=== PATIENT | female | born 1960 | race Caucasian/White ===

== ENCOUNTER → 2019-08-29 16:57 | Outpatient (CLI) | payer OTHER, BC, SELFPAY ==
--- NOTE | ~2019-08-29 | XR_ITS ---
EXAMINATION: XR chest 2V DATE: 08/29/2019 17:11 INDICATION: Cough. TECHNIQUE: Frontal and lateral views of the chest were obtained. COMPARISON: CT abdomen and pelvis 01/11/2019 FINDINGS: There is mild scarring at the lung apices. No pleural effusion or pneumothorax. Blunting of the posterior costophrenic angles correlates with small diaphragmatic hernias containing fat by CT. The heart size is normal. Breast implants are noted. IMPRESSION: 1. Mild scarring at the lung apices. Reviewed, dictated and finalized at location A.
== END ==
PROVIDERS: PCP Nurse Practitioner Adult Health; Visit Provider Nurse Practitioner Adult Health
DX: R05 Cough (principal); R91.8 Other nonspecific abnormal finding of lung field
CPT/HCPCS: 71046

== ENCOUNTER → 2020-01-05 14:21 | Outpatient (CLI) | payer OTHER, BC, SELFPAY ==
--- NOTE | ~2020-01-05 | XR_ITS ---
XR chest 2V DATE: 01/05/2020 14:36 INDICATION: Cough TECHNIQUE: PA and lateral views COMPARISON: 08/29/2019 2 view chest FINDINGS: Normal heart size. No hilar or mediastinal enlargement. Bilateral hyperinflation. Mild in filtrate or atelectasis at the lung bases; otherwise no pulmonary infiltrate or consolidation, pulmon anne marie vascular congestion, pleural effusion or pneumothorax. Osteopenia. There is levoscoliosis of the upper thoracic spine. IMPRESSION: Bilateral hyperinflation. Mild infiltrate or atelectasis at the lung bases; otherwise no active cardiopulmonary disease. No sig nificant change since 08/29/2019 Reviewed, dictated and finalized at location B. IMPRESSION: Bilateral hyperinflation. Mild infiltrate or atelectasis at the lung bases; otherwise no active cardiopul monary disease. No significant change since 08/29/2019
== END ==
PROVIDERS: Visit Provider Nurse Practitioner Adult Health
DX: R05 Cough (principal); R91.8 Other nonspecific abnormal finding of lung field
CPT/HCPCS: 71046

== ENCOUNTER 2020-08-27 15:12 | Emergency (ER) | payer OTHER, BC, SELFPAY ==
--- NOTE | ~2020-08-27 | CT_ITS ---
EXAMINATION: CT abdomen pelvis w con EXAM DATE: 08/27/2020 16:33 INDICATION: Left lower quadrant pain radiating into groin. TECHNIQUE: Spiral CT of the abdomen and pelvis was performed following intravenous injection of 100 m L Omnipaque 350. Axial, coronal and sagittal images were reviewed. The dose-length product (DLP) fo r this examination was 318.68 mGy-cm. The exposure was tailored according to patient size (auto mA e xposure control), and iterative reconstruction (ASIR) was used as additional dose reduction technique . Comparison is made to prior examination from 01/10/2019. FINDINGS: The liver, spleen, adrenal glands and pancreas are unremarkable. Gallbladder is unremarkab le. No biliary obstruction. Portal and splenic veins are patent. Kidneys enhance symmetrically. T here is no hydronephrosis. The uterus is not identified and has likely been surgically resected. T he bladder is unremarkable. There is no retroperitoneal or pelvic lymphadenopathy. Small umbilical fat-containing hernia. The appendix is not positively visualized. There is no pericecal inflammatory change to suggest appe ndicitis. The stomach and small bowel are unremarkable. There is colonic fluid, correlate for diar kasie. There is mild sigmoid colonic diverticulosis. There is no adjacent inflammatory change to sugg est diverticulitis. No free intraperitoneal gas. The heart is normal in size. There are no perica rdial or pleural effusions. Right middle lobe granuloma. Bibasilar linear atelectasis. There are no osteoblastic or osteolytic lesions identified. Compared to prior study, the perisigmoid inflammatio n has resolved. IMPRESSION: 1. No acute intra-abdominal findings. 2. Colonic fluid without wall thickening. Reviewed, dictated and finalized at location A.
[2020-08-27 15:16] VITALS: BP 140/78; PULSE 83; RESP 20; TEMP 36.6; O2SAT 99
[2020-08-27 15:30] VITALS: BP 140/78; PULSE 83; RESP 16; TEMP 36.6; O2SAT 99
--- NOTE | 2020-08-27 15:47 | ED.GENADULT ---
HPI - General Adult General Chief complaint: Abdominal Pain Stated complaint: llq abdominal pain Time Seen by Provider: 08/27/20 15:23 Source: RN notes reviewed History of Present Illness HPI narrative: Patient presents emergency department from home for abdominal pain. Patient states pain began approximately 1 week ago pain is located in the left lower quadrant and radiates down into the rectum described as sharp and stabbing. Patient called her PCP last week and was started on Cipro and Flagyl which she has been taking with minimal relief she denies any fevers or chills chest pain shortness of breath nausea vomiting diarrhea or any other symptoms. States she does have a history of diverticulitis Related Data Allergies Allergy/AdvReac Type Severity Reaction Status Date / Time azithromycin Allergy Mild MUSCLE Verified 08/27/20 15:54 CRAMPS levofloxacin Allergy Unknown MUSCLE Verified 08/27/20 15:54 CRAMPS Review of Systems Review of Systems: Narrative: Gen.: Denies fevers or chills ENT: Denies congestion Respiratory: Denies shortness of breath or cough CV: Denies chest pain or palpitations GI: See HPI denies burning, urgency, frequency or hematuria Musculoskeletal: Denies back pain or muscle pain Neuro: Denies numbness, tingling, weakness or focal weakness Skin: Denies rash Except as documented, all other systems reviewed and negative [facility] Past Medical History Medical History (Updated 08/27/20 @ 17:59 by Reggie Albert DO) Diverticulitis Social History Social History (Updated 08/27/20 @ 15:48 by Reggie Albert DO) Smoking status: Never smoker Gender identity (if verbalized by the patient): Female Exam Narrative: Exam Narrative: APPEARANCE: No acute distress, nontoxic, resting in bed HEENT: Normocephalic, atraumatic, OMM RESPIRATORY: No respiratory distress, clear to auscultation bilaterally with no rhonchi wheezing or rales CARDIOVASCULAR: RRR s murmur ABDOMINAL: Soft nondistended tender palpation left lower quadrant no tenderness left upper quadrant and right upper quadrant right lower quadrant no rebound or guarding no overlying rash or signs of infection MUSCULOSKELETAl: Moves all extremities. No clubbing, cyanosis or edema. NEURO: Awake and alert. Following commands, speech normal, no focal deficits SKIN:: Warm, dry. Normal Color PSYCHIATRIC: Normal affect/mood Course Course Emergency Course: Upon discussion with patient she does not like the way the Flagyl makes her feel and has only been intermittently taking it Patient states that they are feeling much better at this time. Repeat abdominal exam shows the patient's abdomen to be soft a with no surgical abdomen present. Discussed with patient results of workup and diagnosis. Discussed need for follow-up with primary care physician, reasons to return to the emergency department in proper use of medication. Patient understands and agrees to current treatment plan Vital Signs Vital signs: Vital Signs Temperature 97.9 F 08/27/20 15:16 Pulse Rate 83 08/27/20 15:16 Respiratory Rate 20 08/27/20 15:16 Blood Pressure 140/78 08/27/20 15:16 Pulse Oximetry 99 08/27/20 15:16 Temperature 97.9 F 08/27/20 15:30 Pulse Rate 83 08/27/20 15:30 Respiratory Rate 16 08/27/20 15:30 Blood Pressure 140/78 08/27/20 15:30 Pulse Oximetry 99 08/27/20 15:30 Medical Decision Making MDM Narrative Medical decision making narrative: Patient with left lower quadrant abdominal pain history of diverticulitis on Cipro and Flagyl for the past 1 week but is only been intermittently taking Flagyl General left lower quadrant no overlying rash or signs of zoster. Lab work is within normal limits CT is within normal limits I question partially treated diverticulitis as patient is not been taking her full regimen I will switch to Augmentin as I do believe she will tolerate this better will discharge to follow-up with her GI specialist i
[2020-08-27 16:06] LABS: Basophils Percent Auto 0.3 % (0.2-1.2); Eosinophils Percent Auto 0.6 % (0-4.4); Hematocrit 40.9 % (37.0-47.0); Hemoglobin 13.6 g/dL (12.0-15.0); Immature Granulocyte Absolute 0.01 K/mm3 (0.00-0.031); Immature Granulocyte Percent A 0.2 % (0-0.5); Lymphocytes Absolute Auto 2.45 K/mm3 (0.9-3.2); Mean Corpuscular HGB Conc 33.3 g/dl (32-36); Mean Corpuscular Hemoglobin 32.2 pg (26-34); Mean Corpuscular Volume 96.7 fl (80-100); Mean Platelet Volume 9.3 fl (7.4-10.4); Monocytes Absolute Auto 0.5 K/mm3 (0.1-0.6); Monocytes Percent Auto 7.3 % (2.6-8.5); Neutrophils Absolute Auto 3.3 K/mm3 (1.3-6.7); Neutrophils Percent Auto 52.6 % (45.5-73.1); Platelet Count Result 261 k/mm3 (150-375); Red Blood Count 4.23 M/mm3 (4.2-5.4); Red Cell Distribution Width 12.7 % (11.5-14.5); White Blood Count 6.3 K/mm3 (4.5-10.0)
[2020-08-27] MEDS: SODIUM CHLORIDE 0.9% IV 1,000 ML 999 ML IV CONT (16:11)
[2020-08-27 16:18] LABS: Alanine Aminotransferase 13 U/L (4-35); Albumin Level 4.6 g/dL (3.5-5.1); Alkaline Phosphatase 64 U/L (38-126); Anion Gap 11 mmol/L (8-16); Aspartate Amino Transferase 25 U/L (14-36); Bilirubin,Total 0.4 mg/dL (0.2-1.3); Blood Urea Nitrogen 13 mg/dL (7-17); Calcium 9.2 mg/dL (8.4-10.2); Carbon Dioxide 25 mmol/L (22-30); Chloride 101 mmol/L (98-107); Estimated CRCL calculation 40 ml/min; Estimated Glomerular Filt Rate 57; Glucose 130 mg/dL (65-105); Lipase 163 U/L (23-300); Potassium 3.3 mmol/L (3.4-5.0); Sodium 137 mmol/L (137-145)
[2020-08-27 16:20] LABS: Add Urine Microscopic? NO; Appearance Urine Clear (Clear); Bilirubin Urine Negative (Negative); Blood Urine Negative (Negative); Color Urine Straw (Yellow); Glucose Urine UA Negative (Negative); Ketones Urine Negative (Negative); Leukocyte Esterase Ur Negative LEU/UL (Negative); Nitrate Urine Negative (Negative); Protein Urine Negative (Negative); Specific Grav Ur 1.006 (1.001-1.035); Urobilinogen Urine Negative mg/dL (<2.0)
[2020-08-27] MEDS: POTASSIUM CHLORIDE 20 MEQ TABLET PO (16:57)
--- NOTE | 2020-08-27 17:48 | PC.NURSE ---
Dr. Albert at bedside to discuss results and treatment plan with pt.
[2020-08-27 18:07] VITALS: BP 129/80; PULSE 79; RESP 18; O2SAT 97
== END 2020-08-27 18:20 | disposition home or self-care (01) ==
PROVIDERS: Emergency Provider Emergency Medicine; PCP Nurse Practitioner Adult Health
DX: R10.32 Left lower quadrant pain (principal)
CPT/HCPCS: 36415; 74177; 80053; 81003; 83690; 85025; 96360; 99284; A9270; J7030; Q9967

== ENCOUNTER → 2022-06-20 15:11 | Outpatient (CLI) | payer OTHER, BC, SELFPAY ==
--- NOTE | ~2022-06-20 | XR_ITS ---
XR chest 2V DATE: 06/20/2022 15:28 INDICATION: Cough TECHNIQUE: 2 views COMPARISON: 01/05/2020 2 view chest FINDINGS: Normal heart size. Moderate bilateral hyperinflation, suggesting COPD. No pulmonary infiltrate or consolidation, pleural effusion or pulmonary vascular congestion or pneumothorax is detected. No hilar or mediastinal enlar gement. Diffuse osteopenia. IMPRESSION: Bilateral hyperinflation; no active cardiopulmonary disease Reviewed, dictated and finalized at location L. TER MAKER
== END ==
PROVIDERS: PCP Family Medicine; Visit Provider Nurse Practitioner Family
DX: R05.9 Cough, unspecified (principal)
CPT/HCPCS: 71046

== ENCOUNTER 2022-09-20 04:33 | Emergency (ER) | payer OTHER, BC, SELFPAY ==
--- NOTE | ~2022-09-20 | CT_ITS ---
CT of the Abdomen and Pelvis: Indication: Abdominal pain Technique: 2.5 mm axial scans were obtained through the abdomen and pelvis following intravenous adm inistration of 100 cc of Omnipaque 350. Dose reduction technique was used on this scan by utilizing a utomated exposure control and iterative reconstruction technique. The dose-length product (DLP) was 4 35.56 mGy-cm. COMPARISON: 08/27/2020 Findings: Scans through the lung bases demonstrate linear bibasilar scarring. The liver, spleen, pancreas, gallbladder, adrenals and kidneys are within normal limits. No evidence of aortic aneurysm. No lymphadenopathy. There is wall thickening and inflammatory change involving the mid to distal sigmoid colon, consisten t with acute diverticulitis. No abscess or definite free air. Images through the pelvis were performed. Urinary bladder unremarkable. No adnexal mass seen. Impression: Acute sigmoid diverticulitis. No abscess or free air. Reviewed, dictated and finalized at [facility]. Impression: Acute sigmoid diverticulitis. No abscess or free air.
[2022-09-20 04:38] VITALS: BP 120/75; PULSE 80; RESP 18; TEMP 36.6; O2SAT 97
[2022-09-20 05:37] LABS: Basophils Percent Auto 0.4 % (0.2-1.2); Eosinophils Percent Auto 0.4 % (0-4.4); Hematocrit 39.1 % (37.0-47.0); Hemoglobin 12.6 g/dL (12.0-15.0); Immature Granulocyte Absolute 0.02 K/mm3 (0.00-0.031); Immature Granulocyte Percent A 0.2 % (0-0.5); Lymphocytes Percent Auto 14.3 % (18.3-44.2); Mean Corpuscular HGB Conc 32.2 g/dl (32-36); Mean Corpuscular Hemoglobin 31.8 pg (26-34); Mean Corpuscular Volume 98.7 fl (80-100); Mean Platelet Volume 9.3 fl (7.4-10.4); Monocytes Absolute Auto 0.8 K/mm3 (0.1-0.6); Monocytes Percent Auto 9.3 % (2.6-8.5); Neutrophils Absolute Auto 6.3 K/mm3 (1.3-6.7); Neutrophils Percent Auto 75.4 % (45.5-73.1); Platelet Count Result 218 k/mm3 (150-375); Red Blood Count 3.96 M/mm3 (4.2-5.4); Red Cell Distribution Width 12.7 % (11.5-14.5); White Blood Count 8.4 K/mm3 (4.5-10.0)
[2022-09-20 05:49] LABS: Alanine Aminotransferase 16 U/L (6-35); Albumin Level 4.5 g/dL (3.5-5.1); Alkaline Phosphatase 89 U/L (38-126); Anion Gap 6 mmol/L (8-16); Aspartate Amino Transferase 21 U/L (14-36); Bilirubin,Total 0.9 mg/dL (0.2-1.3); Blood Urea Nitrogen 9 mg/dL (7-17); Calcium 9.2 mg/dL (8.4-10.2); Carbon Dioxide 29 mmol/L (22-30); Chloride 101 mmol/L (98-107); Estimated CRCL calculation 48 ml/min; Estimated Glomerular Filt Rate > 60; Glucose 97 mg/dL (65-110); Lipase 94 U/L (23-300); Potassium 4.3 mmol/L (3.4-5.0); Sodium 136 mmol/L (137-145)
--- NOTE | 2022-09-20 05:56 | ED.GENADULT ---
HPI - General Adult General Chief complaint: Abdominal Pain Stated complaint: LLQ pain Time Seen by Provider: 09/20/22 05:52 History of Present Illness HPI narrative: 60-year-old female history of diverticulitis presented with left lower quadrant pain. Per patient, for the last 2 days she has been having left lower quadrant intermittent abdominal pain, made worse with passing flatus. Denied fevers, chills, nausea, vomiting, diarrhea, hematochezia, dysuria, hematuria, shortness of breath. Having regular BM and flatus. Past medical history: Diverticulitis Past surgical history: Hysterectomy Medications: Denied Allergies: Azithromycin, levofloxacin, clindamycin Social: Denies smoking, recreational drugs Related Data Allergies Allergy/AdvReac Type Severity Reaction Status Date / Time azithromycin Allergy Mild MUSCLE Verified 09/20/22 05:26 CRAMPS levofloxacin Allergy Unknown MUSCLE Verified 09/20/22 05:26 CRAMPS Review of Systems Review of Systems: See HPI [facility] Past Medical History Medical History Diverticulitis Social History Social History (Updated 08/27/20 @ 15:48 by Reggie Albert DO) Smoking status: Never smoker Gender identity (if verbalized by the patient): Female Exam Narrative: APPEARANCE: Alert, calm and cooperative, no acute distress, phonating, sitting comfortably during visit HEAD: atraumatic EYES: Pupils equal round an reactive to light, extra ocular movements intact, no conjunctival injection NOSE: Normal no drainage NECK: Supple, without meningismus RESPIRATORY: Lungs clear to auscultation bilaterally, no wheezes/rales/rhonchi, breathing comfortably CARDIOVASCULAR: Regular rate and rhythm, no visible jugular venous distension ABDOMINAL: Soft, left lower quadrant tenderness to palpation, nondistended, no guarding, no rebound/peritoneal signs, no costovertebral tenderness to palpation BACK: no midline tenderness to palpation, no step offs EXTREMITIES: No edema, palpable peripheral pulses, warm, well perfused, no tenderness to bilateral calves. NEURO: Alert, moving all extremities symmetrically SKIN:: Warm, dry. Normal color PSYCHIATRIC: Normal affect/mood Course Vital Signs Vital signs: Vital Signs Temperature 97.8 F 09/20/22 04:38 Pulse Rate 80 09/20/22 04:38 Respiratory Rate 18 09/20/22 04:38 Blood Pressure 120/75 09/20/22 04:38 Pulse Oximetry 97 09/20/22 04:38 Temperature 97.8 F 09/20/22 04:38 Pulse Rate 80 09/20/22 04:38 Respiratory Rate 18 09/20/22 04:38 Blood Pressure 120/75 09/20/22 04:38 Pulse Oximetry 97 09/20/22 04:38 Medical Decision Making MDM Narrative Medical decision making narrative: Medical Decision Making 62-year-old female history of diverticulitis presenting with 2 days of left lower quadrant abdominal pain, worsening with flatus. Physical exam notable for left lower quadrant tenderness to palpation, sitting comfortably, vitals within normal limits. Differential diagnosis includes but not limited to: Diverticulitis vs perforated viscus vs UTI vs pyelonephritis. CT abdomen pelvis notable for acute diverticulitis, without perforation, without abscess. Findings communicated to patient, discussed outpatient management with close follow-up versus admission, patient communicated preference for outpatient management. Bloodwork reviewed, noted to be unremarkable. Physical exam benign, abdomen soft, vitals stable. The patient tolerated oral intake, is alert and oriented, speaking with clear speech, ambulated with steady gait, and has remained hemodynamically stable throughout the ED visit. He has close follow up with GI and colorectal. Areas of diagnostic uncertainty discussed and strict return precautions shared with patient; encouraged to return to the emergency department if symptoms returned or worsened. The patient is safe to be discharged with follow up, provided sh
[2022-09-20] MEDS: SODIUM CHLORIDE 0.9% IV 1,000 ML 999 ML IV CONT (06:43)
--- NOTE | 2022-09-20 06:50 | PC.NURSE ---
Patient refusing her morphine and Zofran orders and stated I think Tylenol will be fine . Notified Dr. Estevez.
[2022-09-20] MEDS: ACETAMINOPHEN 500 MG TABLET 1000 MG PO (06:54)
[2022-09-20 07:12] LABS: Appearance Urine Cloudy (Clear); Bacteria Urine 4+ /hpf; Bilirubin Urine Negative (Negative); Blood Urine Negative (Negative); Color Urine Yellow (Yellow); Glucose Urine UA Negative (Negative); Ketones Urine Negative (Negative); Leukocyte Esterase Ur 1+ LEU/UL (Negative); Nitrate Urine Negative (Negative); Non Pathogenic Casts 0-2; Protein Urine Negative (Negative); RBC Urine 0-2 /hpf (0-2); Specific Grav Ur 1.003 (1.001-1.035); Squamous Epithelial Cell Urine Occasional /hpf (Few); Urobilinogen Urine 0.2 mg/dL (<2.0); WBC Urine 21-50 /hpf
[2022-09-20 07:15] LABS: Add Urine Microscopic? YES
== END 2022-09-20 07:55 | disposition home or self-care (01) ==
PROVIDERS: Emergency Provider Emergency Medicine; PCP Family Medicine
DX: K57.32 Diverticulitis of large intestine without perforation or abscess without bleeding (principal); Z90.710 Acquired absence of both cervix and uterus
CPT/HCPCS: 36415; 74177; 80053; 81001; 83690; 85025; 87077; 87086; 87186; 96360; 99284; A9270; J7030; Q9967

== ENCOUNTER 2022-09-25 17:59 | Emergency (ER) | payer OTHER, BC, SELFPAY ==
--- NOTE | ~2022-09-25 | CT_ITS ---
EXAMINATION: CT abdomen pelvis w con DATE: 09/25/2022 19:28 INDICATION: LLQ pain, recent diverticulitis TECHNIQUE: Computed tomography (CT) of the abdomen and pelvis was performed with 100 mL Omnipaque-350 intravenous contrast. Automated exposure control and iterative reconstruction technique were employe d. The dose-length product was 287.17 mGy-cm. COMPARISON: 09/20/2022. FINDINGS: Lower thorax: Bibasilar scar/atelectasis. Bilateral breast implants. Liver: Normal. Biliary/Gallbladder: Gallbladder is normal. No bile duct dilation. Pancreas: No mass or duct dilation. Spleen: Granulomatous calcifications. Adrenals:No mass. Kidneys: No mass, stone, or hydronephrosis. GI tract: Mild distal esophageal and gastric wall edema. No small or large bowel dilation. Surgically absent appendix Multiple colonic diverticuli. Near-complete interval resolution of the perisigmoid i nflammatory changes. Mesentery/Peritoneum: No ascites, mass, or free air. Retroperitoneum: No mass. Pelvis: Normal urinary bladder. Surgically absent uterus. Bilateral ovaries not confidently visualize d. Soft Tissues: Soft tissues and body wall unremarkable. Bones: No acute osseous finding. IMPRESSION: No acute abdominopelvic process detected. Near-complete resolution of diverticulitis findings in the mid to distal sigmoid colon Reviewed, dictated and finalized at location K. IMPRESSION: No acute abdominopelvic process detected. Near-complete resolution of diverticu litis findings in the mid to distal sigmoid colon
[2022-09-25 18:07] VITALS: BP 142/70; PULSE 103; RESP 15; TEMP 36.4; O2SAT 100
[2022-09-25 18:59] LABS: Basophils Percent Auto 0.3 % (0.2-1.2); Eosinophils Percent Auto 0.7 % (0-4.4); Hematocrit 37.6 % (37.0-47.0); Hemoglobin 12.7 g/dL (12.0-15.0); Immature Granulocyte Absolute 0.02 K/mm3 (0.00-0.031); Immature Granulocyte Percent A 0.3 % (0-0.5); Lymphocytes Absolute Auto 1.84 K/mm3 (0.9-3.2); Mean Corpuscular HGB Conc 33.8 g/dl (32-36); Mean Corpuscular Hemoglobin 31.7 pg (26-34); Mean Corpuscular Volume 93.8 fl (80-100); Monocytes Absolute Auto 0.5 K/mm3 (0.1-0.6); Monocytes Percent Auto 8.1 % (2.6-8.5); Neutrophils Absolute Auto 3.5 K/mm3 (1.3-6.7); Neutrophils Percent Auto 59.6 % (45.5-73.1); Platelet Count Result 280 k/mm3 (150-375); Red Blood Count 4.01 M/mm3 (4.2-5.4); Red Cell Distribution Width 12.2 % (11.5-14.5); White Blood Count 5.9 K/mm3 (4.5-10.0)
--- NOTE | 2022-09-25 19:02 | ED.ABDPAIN ---
HPI - Abdominal Pain General Chief Complaint: Abdominal Pain Stated Complaint: diverticulitis worsening Time Seen by Provider: 09/25/22 18:34 History of Present Illness HPI narrative: Patient is a 62-year-old female presenting with abdominal pain. Patient states that she was diagnosed with diverticulitis approximately 5 days ago. She was initially started on Augmentin but then she had multiple episodes of diarrhea. States that she spoke with her PCP who then switched her to Cipro and Flagyl. States that she was initially improving but unfortunately today the left lower quadrant pain returned and has now spread to her entire abdomen. States that she has been intermittently nauseated as well. States that she has had some dysuria. Denies fevers, headache, chest pain, shortness of breath, cough, leg swelling, hematuria, melena, hematochezia. Related Data Allergies Allergy/AdvReac Type Severity Reaction Status Date / Time azithromycin Allergy Mild MUSCLE Verified 09/20/22 05:26 CRAMPS levofloxacin Allergy Unknown MUSCLE Verified 09/20/22 05:26 CRAMPS Review of Systems Review of Systems: All systems reviewed & are unremarkable except as noted in HPI and below PMFSH Past Medical History Medical History Diverticulitis Social History Social History Smoking status: Never smoker Gender identity (if verbalized by the patient): Female Exam Narrative: GENERAL: Well-appearing, well-nourished, and in no acute distress. HEAD: Normocephalic, atraumatic. EYES: PERRLA and EOMI. ENT: Nares clear, no rhinorrhea or epistaxis. Mucous membranes moist. NECK: Supple. CHEST: Clear to auscultation. No respiratory distress. HEART: Regular rate and rhythm. ABDOMEN: Soft, + left lower quadrant and suprapubic tenderness, no guarding or rebound EXTREMITIES: Normal range of motion. No edema. SKIN: Warm, dry, no rash. NEURO: No focal deficits. Alert and oriented x3. PSYCH: Normal mood and affect. Course Vital Signs Vital signs: Vital Signs Temperature 97.6 F 09/25/22 18:07 Pulse Rate 103 H 09/25/22 18:07 Respiratory Rate 15 09/25/22 18:07 Blood Pressure 142/70 H 09/25/22 18:07 Pulse Oximetry 100 09/25/22 18:07 Temperature 97.6 F 09/25/22 18:07 Pulse Rate 75 09/25/22 21:41 Respiratory Rate 15 09/25/22 18:07 Blood Pressure 128/75 09/25/22 21:41 Pulse Oximetry 99 09/25/22 21:41 MDM - Abdominal Pain MDM Narrative Medical decision making narrative: Patient is a 62-year-old female presenting with worsening abdominal pain in the setting of recent diverticulitis diagnosis. Patient is mildly tachycardic, otherwise vitals are within normal limits. Exam is remarkable for the above. Plan for blood work and repeat CT abdomen pelvis. We will start IV Tylenol and fluids at this time. Blood work is unremarkable. CT abdomen pelvis shows near complete resolution of the sigmoid diverticulitis. On reevaluation, the patient is resting comfortably. Discussed the findings with the patient and advised that she continue taking her antibiotics. Advised that she follow-up closely with her PCP. Discussed appropriate diet and supportive care. Appropriate return precautions given. Patient voiced understanding and is agreeable with plan. Discharged in stable condition. Differential Diagnosis Differential diagnosis: Likely abdominal pain, acute appendicitis, constipation, diverticulitis, gastroenteritis and pancreatitis Lab Data 09/25/22 18:40 09/25/22 18:40 Labs: Lab Results 09/25/22 09/25/22 Range/Units 18:40 18:44 WBC 5.9 (4.5-10.0) K/mm3 RBC 4.01 L (4.2-5.4) M/mm3 Hgb 12.7 (12.0-15.0) g/dL Hct 37.6 (37.0-47.0) % MCV 93.8 (80-100) fl MCH 31.7 (26-34) pg MCHC 33.8 (32-36) g/dl RDW 12.2 (11.5-14.5) % Plt Count 280 (
[2022-09-25 19:10] LABS: Alanine Aminotransferase 17 U/L (6-35); Albumin Level 4.6 g/dL (3.5-5.1); Alkaline Phosphatase 77 U/L (38-126); Anion Gap 8 mmol/L (8-16); Aspartate Amino Transferase 30 U/L (14-36); Bilirubin,Total 0.5 mg/dL (0.2-1.3); Blood Urea Nitrogen 10 mg/dL (7-17); Calcium 9.4 mg/dL (8.4-10.2); Carbon Dioxide 26 mmol/L (22-30); Chloride 96 mmol/L (98-107); Estimated CRCL calculation 50 ml/min; Estimated Glomerular Filt Rate > 60; Glucose 114 mg/dL (65-110); Lipase 97 U/L (23-300); Potassium 4.1 mmol/L (3.4-5.0); Sodium 130 mmol/L (137-145)
[2022-09-25 19:17] LABS: Appearance Urine Clear (Clear); Bacteria Urine None Seen /hpf; Bilirubin Urine Negative (Negative); Blood Urine Trace (Negative); Color Urine Yellow (Yellow); Glucose Urine UA Negative (Negative); Ketones Urine Trace mg/dL (Negative); Leukocyte Esterase Ur Trace LEU/UL (Negative); Nitrate Urine Negative (Negative); Non Pathogenic Casts 0-2; Protein Urine Negative (Negative); RBC Urine 0-2 /hpf (0-2); Specific Grav Ur 1.007 (1.001-1.035); Squamous Epithelial Cell Urine Occasional /hpf (Few); Urobilinogen Urine 0.2 mg/dL (<2.0); WBC Urine 0-5 /hpf; pH Urine 5.5 (5.0-9.0)
[2022-09-25 19:24] LABS: Add Urine Microscopic? YES
[2022-09-25] MEDS: SODIUM CHLORIDE 0.9% IV 1,000 ML 999 ML IV CONT ×2 (19:31→20:11)
[2022-09-25 21:41] VITALS: BP 128/75; PULSE 75; O2SAT 99
== END 2022-09-25 22:13 | disposition home or self-care (01) ==
PROVIDERS: Emergency Provider Emergency Medicine; PCP Family Medicine
DX: K57.32 Diverticulitis of large intestine without perforation or abscess without bleeding (principal)
CPT/HCPCS: 36415; 74177; 80053; 81001; 83690; 85025; 96361; 96365; 99284; J0131; J7030; Q9967

== ENCOUNTER 2023-12-24 11:05 | Emergency (ER) | payer OTHER, BC, SELFPAY ==
--- NOTE | ~2023-12-24 | CT_ITS ---
EXAMINATION: CT abdomen pelvis w con DATE: 12/24/2023 13:44 INDICATION: Left lower quadrant abdominal pain TECHNIQUE: Computed tomography (CT) of the abdomen and pelvis was performed with 100 mL Omnipaque-350 intravenous contrast. Automated exposure control and iterative reconstruction technique were employe d. The dose-length product was 255.18 mGy-cm. COMPARISON: None FINDINGS: Discoid atelectasis in the basilar bilateral lower lobes. Heart size is normal. No pericardial effusi on. Liver, gallbladder, spleen, pancreas, bilateral adrenal glands and left kidney are normal. Subcen timeter low-attenuation likely right renal cyst which is too small to definitively characterize. Ther e is mild colonic diverticulosis with a sigmoid predominance. There is no adjacent inflammatory san ge to suggest diverticulitis. Small bowel and appendix are normal. Bladder is normal. The uterus is not identified and has likely been surgically resected. No free intraperitoneal gas or fluid. No path ologically enlarged abdominal or pelvic lymphadenopathy. Bones are unremarkable. IMPRESSION: 1. No acute intra-abdominal/pelvic process. Reviewed, dictated and finalized at location A.
[2023-12-24 11:13] VITALS: BP 127/67; PULSE 76; RESP 20; TEMP 36.4; O2SAT 99
--- NOTE | 2023-12-24 13:08 | ED.ABDPAIN ---
HPI - Abdominal Pain General Chief Complaint: Abdominal Pain <Marcos Gilmore PA-C - Last Filed: 12/24/23 15:04> Stated Complaint: LLQ pain <Marcos Gilmore PA-C - Last Filed: 12/24/23 15:04> Time Seen by Provider: 12/24/23 13:07 <Marcos Gilmore PA-C - Last Filed: 12/24/23 15:04> Focused HPI: This is a 63-year-old female who presents to the ED with chief complaint of left lower quadrant abdominal pain beginning 3-4 days ago. Patient reports multiple episodes of acute diverticulitis in the past and this feels similar. She did have about 3 days of diarrhea. She reports she started self treating for possible UTI with leftover cefdinir couple weeks ago. Endorses chills but no fevers. Endorses nausea but no vomiting. Denies GI bleeding symptoms, chest pain, shortness of breath, urinary symptoms. GENERAL: Well-appearing, well-nourished, and in no acute distress. HEAD: Normocephalic, atraumatic. CHEST: Clear to auscultation. No respiratory distress. HEART: Regular rate and rhythm. ABD: Mild abdominal tenderness in the left lower quadrant. Soft otherwise nontender. No flank tenderness bilaterally. NEURO: Alert and oriented x3. Patient screened in triage and initial orders placed. Additional care and disposition to be based upon diagnostic testing and treatment. <Marcos Gilmore PA-C - Last Filed: 12/24/23 15:04> Source: patient <Marcos Gilmore PA-C - Last Filed: 12/24/23 15:04> Mode of arrival: ambulatory <Marcos Gilmore PA-C - Last Filed: 12/24/23 15:04> Limitations: no limitations <Marcos Gilmore PA-C - Last Filed: 12/24/23 15:04> History of Present Illness HPI narrative: Agree with HPI <Antonio Robles MD - Last Filed: 12/24/23 14:58> Related Data Allergies/Adverse Reactions: Allergies Allergy/AdvReac Type Severity Reaction Status Date / Time azithromycin Allergy Mild MUSCLE Verified 09/20/22 05:26 CRAMPS levofloxacin Allergy Unknown MUSCLE Verified 09/20/22 05:26 CRAMPS <Marcos Gilmore PA-C - Last Filed: 12/24/23 15:04> Review of Systems Review of Systems: All systems reviewed & are unremarkable except as noted in HPI and below <Antonio Robles MD - Last Filed: 12/24/23 14:58> Constitutional: Constitutional: Reports no additional constitutional complaints <Antonio Robles MD - Last Filed: 12/24/23 14:58> ENT: Reports system reviewed and no additional complaints, except as documented <Antonio Robles MD - Last Filed: 12/24/23 14:58> Respiratory: Respiratory: Reports no additional respiratory complaints <Antonio Robles MD - Last Filed: 12/24/23 14:58> Gastrointestinal: Gastrointestinal: Reports abdominal pain, Reports diarrhea, Reports nausea and Reports vomiting <Antonio Robles MD - Last Filed: 12/24/23 14:58> Genitourinary: Genitourinary: Reports no additional female genitourinary complaints <Antonio Robles MD - Last Filed: 12/24/23 14:58> Musculoskeletal: Musculoskeletal: Reports no additional musculoskeletal complaints <Antonio Robles MD - Last Filed: 12/24/23 14:58> PMFSH Past Medical History Medical History: Medical History Diverticulitis <Marcos Gilmore PA-C - Last Filed: 12/24/23 15:04> Social History Social History: Social History Smoking status: Never smoker Gender identity (if verbalized by the patient): Female <Marcos Gilmore PA-C - Last Filed: 12/24/23 15:04> Exam Narrative: GENERAL: Well-appearing, well-nourished, and in no acute distress. HEAD: Normocephalic, atraumatic. ENT: Mucous membranes moist. CHEST: Clear to auscultation. No respiratory distress. HEART: Regular rate and rhythm. Normal peripheral pulses. ABDOMEN: Soft, nontender, nondistended. EXTREMITIES: Normal range of motion. No edema. SKIN: Warm, dry, no rash. NEURO: Alert and oriented x3. P
[2023-12-24 13:39] LABS: Basophils Percent Auto 0.4 % (0.2-1.2); Eosinophils Percent Auto 0.6 % (0-4.4); Hematocrit 42.4 % (37.0-47.0); Immature Granulocyte Absolute 0.01 K/mm3 (0.00-0.031); Immature Granulocyte Percent A 0.1 % (0-0.5); Lymphocytes Absolute Auto 2.55 K/mm3 (0.9-3.2); Lymphocytes Percent Auto 35.8 % (18.3-44.2); Mean Corpuscular Hemoglobin 32.5 pg (26-34); Mean Corpuscular Volume 98.4 fl (80-100); Mean Platelet Volume 8.9 fl (7.4-10.4); Monocytes Absolute Auto 0.5 K/mm3 (0.1-0.6); Monocytes Percent Auto 7.2 % (2.6-8.5); Neutrophils Percent Auto 55.9 % (45.5-73.1); Platelet Count Result 278 k/mm3 (150-375); Red Blood Count 4.31 M/mm3 (4.2-5.4); Red Cell Distribution Width 12.6 % (11.5-14.5); White Blood Count 7.1 K/mm3 (4.5-10.0)
[2023-12-24 13:41] LABS: Estimated CRCL calculation 44 ml/min; Estimated Glomerular Filt Rate > 60
[2023-12-24 13:46] LABS: Appearance Urine Cloudy (Clear); Bacteria Urine None Seen /hpf; Bilirubin Urine Negative (Negative); Blood Urine Negative (Negative); Color Urine Yellow (Yellow); Glucose Urine UA Negative (Negative); Ketones Urine Negative (Negative); Leukocyte Esterase Ur Negative LEU/UL (Negative); Nitrate Urine Negative (Negative); Non Pathogenic Casts 0-2; Protein Urine Negative (Negative); RBC Urine 0-2 /hpf (0-2); Specific Grav Ur 1.006 (1.001-1.035); Squamous Epithelial Cell Urine Moderate /hpf (Few); Urobilinogen Urine 0.2 mg/dL (<2.0); WBC Urine 0-5 /hpf (0-3); pH Urine 5.5 (5.0-9.0)
[2023-12-24 13:47] LABS: Add Urine Microscopic? YES
[2023-12-24] MEDS: SODIUM CHLORIDE 0.9% IV 1,000 ML 999 ML IV CONT (13:52)
[2023-12-24 13:53] LABS: Alanine Aminotransferase 14 U/L (6-35); Albumin Level 4.9 g/dL (3.5-5.1); Alkaline Phosphatase 86 U/L (38-126); Anion Gap 12 mmol/L (4-12); Aspartate Amino Transferase 23 U/L (14-36); Bilirubin,Total 0.6 mg/dL (0.2-1.3); Blood Urea Nitrogen 9 mg/dL (7-17); Calcium 9.6 mg/dL (8.4-10.2); Carbon Dioxide 26 mmol/L (22-30); Chloride 99 mmol/L (98-107); Estimated CRCL calculation 44 ml/min; Estimated Glomerular Filt Rate > 60; Glucose 100 mg/dL (65-110); Lipase 120 U/L (23-300); Potassium 3.7 mmol/L (3.4-5.0); Sodium 137 mmol/L (137-145)
[2023-12-24 15:38] VITALS: BP 128/81; PULSE 74; RESP 16; TEMP 36.8; O2SAT 100
== END 2023-12-24 15:39 | disposition home or self-care (01) ==
PROVIDERS: Physician Assistant; Emergency Provider Emergency Medicine; PCP Family Medicine
DX: K52.9 Noninfective gastroenteritis and colitis, unspecified (principal)
CPT/HCPCS: 36415; 74177; 80053; 81001; 83690; 85025; 96360; 96361; 99284; J7030; Q9967